=== PATIENT | male | born 1985 | race Caucasian/White ===

== ENCOUNTER 2023-02-10 10:15 | Outpatient (AMB) | payer OTHER, SELFPAY ==
--- NOTE | 2023-02-10 10:34 | AM.OFFWIN_ITS ---
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 Patient states his symptoms started with nasal congestion and a dry cough that has become productive with mucus. Patient denies having any fevers, chills, ear pain, sore throat, difficulty swallowing, chest pain or shortness of breath. Patient has been taking DayQuil and NyQuil without relief of his cough. [facility] Social History Patient Tobacco Use Status: Never used Tobacco Review of Systems Const All systems reviewed & are unremarkable except as noted in HPI and below Denies chills, Denies difficulty sleeping, Denies fever(s), Denies lethargy, Denies malaise and Denies night sweats Card Denies chest pain and Denies dyspnea Resp Denies change in phlegm color, Reports cough, Denies hemoptysis, Denies excessive phlegm production, Denies dyspnea and Denies wheezing GI Denies nausea and Denies vomiting Aller/Immun Denies wheezing Physical Exam Vital Signs: Last Vital Signs Temp 98.8 F 02/10/23 10:35 Pulse 74 02/10/23 10:35 BP 124/70 02/10/23 10:35 Pulse Ox 96 02/10/23 10:35 BMI result Body Mass Index 32.5 Const General: cooperative, healthy appearing, comfortable, no acute distress, well developed, alert, awake, Physically active and other (afebrile, POX 96% on room air); No ill appearing or lethargic Nutritional Appearance: average body habitus Orientation/consciousness: patient oriented x3 and No lethargic Limitations: no limitations HEENT Head: Yes normal to inspection Ears: hearing grossly normal bilaterally and TM's normal bilaterally General nose exam: Normal external nose present Face and sinus: Yes normal facial exam and Yes sinuses nontender Mouth: Normal oral and palatal mucosa present and moist mucous membranes Throat: Yes posterior oropharynx normal Eyes General: appearance normal, both eyes and all related structures Resp Effort & Inspection: normal respiratory effort, able to speak in complete sentences and no audible wheezes Auscultation: clear to auscultation bilaterally and other (No tachypnea) Cardio Rate: regular rate Rhythm: regular rhythm Skin General skin exam: no rashes or lesions noted Neuro General: patient oriented x3 Psych Appearance: grossly normal Mental Status: mental status grossly normal Speech and movement: Normal speech and movement present Affect: normal affect Attitude: cooperative Thought process: Normal thought process present Thought content: Normal thought content present Insight: Good insight present (Psych) Judgement: Good judgement present (Psych) Assessment & Plan Assessment & Plan (1) Upper respiratory infection: Code(s): J06.9 - Acute upper respiratory infection, unspecified Plan Patient seen and evaluated. He is well-appearing on examination. Patient's history coupled with his examination is consistent with a viral upper respiratory infection. Patient will be instructed to use Mucinex OTC and increase his daily water intake. Patient does not currently have a primary care physician and is therefore invited to return to the walk-in if his symptoms worsen. Coding Level of Care Code New Pt Level 3 (48437) Diagnoses Upper respiratory infection J06.9 Time Spent (min) 20
[2023-02-10 10:35] VITALS: BP 124/70; PULSE 74; TEMP 37.1; O2SAT 96; BMI 32.5
== END 2023-02-10 11:09 | disposition home or self-care (01) ==
PROVIDERS: Visit Provider Physician Assistant
DX: J06.9 Acute upper respiratory infection, unspecified (principal)
CPT/HCPCS: 99203